=== PATIENT | female | born 1945 | race Caucasian/White ===

== ENCOUNTER 2020-10-29 05:51 | Observation (INO) | payer MEDICARE ==
[2020-10-29] MEDS ORDERED: Pepcid 20 MG VIAL IV ONE ×2 (06:19→06:45)
[2020-10-29] MEDS ORDERED: Sodium Chloride 0.9% 1000 ML 1,000 ML IV SCH (06:30)
[2020-10-29] MEDS ORDERED: Sodium Chloride 0.9% 1000 ML 1,000 ML ONE (06:45)
--- NOTE | 2020-10-29 07:10 | ERPHSYRPT ---
- History of Present Illness Source: patient Exam Limitations: no limitations Timing/Duration: today Severity: moderate Modifying Factors: Improves With: nothing Associated Symptoms: denies symptoms Hx Tetanus, Diphtheria Vaccination/Date Given: No Hx Influenza Vaccination/Date Given: Yes Hx Pneumococcal Vaccination/Date Given: No <YUSEF CERDA - Last Filed: 10/29/20 07:17> <KAREN PISANO - Last Filed: 10/29/20 09:58> - History of Present Illness Time Seen by Provider: 10/29/20 07:05 Physician History: pt took tussinex which had always been OK before and then broke out in a rash and with swollen tongue - airway is OK and swallowing OK; Has decreased since given and did take benedryl but is noted to have been allergic and so not given in ER furrther but began decadrom and H2 gavi; (YUSEF CERDA) Allergies/Adverse Reactions: acetaminophen [From Mucinex Sinus-Max Nite Congest] Allergy (Severe, Verified 10/29/20 06:20) Difficulty Swallowing diphenhydramine [From Mucinex Sinus-Max Nite Congest] Allergy (Severe, Verified 10/29/20 07:44) Difficulty Swallowing can take benadryl, but had allergic reaction to mucinex phenylephrine [From Mucinex Sinus-Max Nite Congest] Allergy (Severe, Verified 10/29/20 06:20) Difficulty Swallowing naproxen Allergy (Intermediate, Verified 10/29/20 06:20) Itching Home Medications: Propranolol HCl 10 mg [Inderal 10 MG] 10 mg PO DAILY 11/15/13 [History] lisinopriL [Zestril 40 mg] 40 mg PO DAILY 11/15/13 [History] Amlodipine Besylate 5 mg [Norvasc 5 mg] 5 mg PO DAILY 10/29/20 [History] - Review of Systems Constitutional: No Fever, No Chills Eyes: No Symptoms Ears, Nose, & Throat: Mouth Swelling (tongue) Respiratory: No Cough, No Dyspnea Cardiac: No Chest Pain, No Edema, No Syncope Abdominal/Gastrointestinal: No Abdominal Pain, No Nausea, No Vomiting, No Diarrhea Genitourinary Symptoms: No Dysuria Musculoskeletal: No Back Pain, No Neck Pain Skin: No Rash Neurological: No Dizziness, No Focal Weakness, No Sensory Changes Psychological: No Symptoms Endocrine: No Symptoms Hematologic/Lymphatic: No Symptoms Immunological/Allergic: No Symptoms All Other Systems: Reviewed and Negative <YUSEF CERDA - Last Filed: 10/29/20 07:17> - Past Medical History Pertinent Past Medical History: Yes Neurological History: No Pertinent History ENT History: No Pertinent History Cardiac History: Hypertension Respiratory History: No Pertinent History Endocrine Medical History: No Pertinent History Musculoskeletal History: No Pertinent History GI Medical History: No Pertinent History History: No Pertinent History Psycho-Social History: No Pertinent History Female Reproductive Disorders: No Pertinent History - Past Surgical History Past Surgical History: Yes Neuro Surgical History: No Pertinent History Cardiac: No Pertinent History Respiratory: No Pertinent History Gastrointestinal: No Pertinent History Genitourinary: No Pertinent History Musculoskeletal: No Pertinent History Female Surgical History: Hysterectomy Other Surgical History: FOOT- SURGERY - Social History Smoking Status: Never smoker Exposure to second hand smoke: No Drug Use: none Patient Lives Alone: Yes <YUSEF CERDA - Last Filed: 10/29/20 07:17> - Physical Exam General Appearance: no apparent distress, alert Eye Exam: PERRL/EOMI, eyes nml inspection Ears, Nose, Throat Exam: TMs normal, pharynx normal, moist mucous membranes, other (swollen tongue) Neck Exam: normal inspection, non-tender, supple, full range of motion Respiratory Exam: normal breath sounds, lungs clear, No respiratory distress Cardiovascular Exam: regular rate/rhythm, normal heart sounds, normal peripheral pulses Gastrointestinal/Abdomen Exam: soft, normal bowel sounds, No tenderness, No mass Pelvic Exam: deferred Rectal Exam: deferred Back Exam: normal inspection, normal range of motion, No CVA tenderness, No vertebral tenderness Extremity Exam: normal inspection, normal range of motion, pelvis stable Neurologic Exam: alert, oriented x 3, cooperative, normal mood/affect, nml cerebellar function, nml station & gait, sensation nml, No motor deficits Skin Exam: normal color, warm, dry, No rash Lymphatic Exam: No adenopathy SpO2 Interpretation: normal SpO2: 98 O2 Delivery: Room Air <YUSEF CERDA - Last Filed: 10/29/20 07:17> - Nursing Vital Signs Nursing Vital Signs: Initial Vital Signs Temperature 98.2 F 10/29/20 06:14 Pulse Rate 68 10/29/20 06:14 Respiratory Rate 18 10/29/20 06:14 Blood Pressure 196/126 10/29/20 06:14 O2 Sat by Pulse Oximetry 98 10/29/20 06:14 Pain Scale Pain Intensity 0 - Course Nursing assessment & vital signs reviewed: Yes <YUSEF CERDA - Last Filed: 10/29/20 07:17> Ordered Tests: Active Orders 24 hr Category Date Time Status IV Insertion STAT Care 10/29/20 06:19 Active Pulse Oximetry (ED) STAT Care 10/29/20 06:19 Active CBC W DIFF Stat Lab 10/29/20 08:25 Completed CMP Stat Lab 10/29/20 08:25 Completed UA W/RFX UR CULTURE Stat Lab 10/29/20 08:18 Ordered Medication Summary Generic Name Dose Route Start Last Admin Trade Name Freq PRN Reason Stop Dose Admin Sodium Chloride 1,000 mls @ 100 mls/hr 10/29/20 06:30 10/29/20 06:57 Sodium Chloride 0.9% 1000 Ml IV 11/28/20 06:29 100 mls/hr .Q10H TIMUR Administration Discontinued Medications Generic Name Dose Route Start Last Admin Trade Name Freq PRN Reason Stop Dose Admin Famotidine 20 mg 10/29/20 06:19 10/29/20 06:57 Pepcid 20 Mg Vial IV 10/29/20 06:20 20 mg STAT ONE Administration Famotidine Confirm 10/29/20 06:45 Pepcid 20 Mg Vial Administered 10/29/20 06:46 Dose 20 mg IV .STK-MED ONE Methylprednisolone Sodium Succinate 125 mg 10/29/20 07:43 10/29/20 07:50 Solu-Medrol 125 Mg IV 10/29/20 07:44 125 mg STAT ONE Administration Methylprednisolone Sodium Succinate Confirm 10/29/20 07:45 Solu-Medrol 125 Mg Administered 10/29/20 07:46 Dose 125 mg .ROUTE .STK-MED ONE Lab/Rad Data: Laboratory Result Diagrams 10/29/20 08:25 10/29/20 08:25 Laboratory Results 10/29/20 10/29/20 10/29/20 Range/Units 08:25 08:25 08:18 WBC 9.0 (4.0-10.5) K/mm3 RBC 4.35 (4.1-5.4) M/mm3 Hgb 13.2 (12.0-16.0) gm/dl Hct 41.2 (35-47) % MCV 94.7 (78-100) fl MCH 30.3 (26-32) pg MCHC 32.0 (32-36) g/dl RDW 14.3 H (11.5-14.0) % Plt Count 255 (150-450) K/mm3 MPV 9.4 (7.5-11.0) fl Gran % 70.1 H (36.0-66.0) % Eos # (Auto) 0.16 (0-0.5) Absolute Lymphs (auto) 1.77 (1.0-4.6) Absolute Monos (auto) 0.74 (0.0-1.3) Lymphocytes % 19.7 L (24.0-44.0) % Monocytes % 8.2 (0.0-12.0) % Eosinophils % 1.8 (0.00-5.0) % Basophils % 0.2 (0.0-0.4) % Absolute Granulocytes 6.31 (1.4-6.9) Basophils # 0.02 (0-0.4) Sodium 141 (137-145) mmol/L Potassium 3.7 (3.5-5.1) mmol/L Chloride 101 (98-107) mmol/L Carbon Dioxide 31 H (22-30) mmol/L Anion Gap 12.4 (5-15) MEQ/L BUN 19 H (7-17) mg/dL Creatinine 0.67 (0.52-1.04) mg/dL Estimated GFR > 60.0 ML/MIN Glucose 112 H (74-106) mg/dL Calcium 9.5 (8.4-10.2) mg/dL Total Bilirubin 0.60 (0.2-1.3) mg/dL AST 24 (14-36) U/L ALT 16 (0-35) U/L Alkaline Phosphatase 76 (38-126) U/L Serum Total Protein 7.8 (6.3-8.2) g/dL Albumin 4.2 (3.5-5.0) g/dL SARS-CoV-2 (PCR) POSITIVE A (NEGATIVE) - Progress Progress: improved, re-examined Counseled pt/family regarding: diagnosis, need for follow-up <YUSEF CERDA - Last Filed: 10/29/20 07:17> - Progress Discussed with Dr.: Sarahy Will see patient in: hospital (observation) <KAREN PISANO - Last Filed: 10/29/20 09:58> - Progress Progress Note: 10/29/20 07:[address] Pisano at change of shift for final dispo and obser/eval. She is now improving. (YUSEF CERDA) Patient endorsed to Dr. Pisano at approximately [address] Pisano was advised to reassess patient and determine whether or not patient is to be admitted for tongue swelling. We decided to admit patient. Case discussed with Dr. Morocho who accepted admission to observation. Patient then advised staff that she was exposed to Covid. Patient was tested for Covid and tested positive. Case discu ssed with Dr. Hobson. After discussion we observed the patient is on lisinopril. Patient believes that her allergic reaction was due to Mucinex. She has taken Mucinex several times in the past without any reaction. However there is a strong possibility that her tongue swelling may be due to her lisinopril. Patient will be admitted to the Covid unit for observation. Plan of care discussed with patient. She agrees to admission to [facility] for further evaluation and treatment. 10/29/20 09:54 Patient reassessed. Airway remains patent. Tongue is considerably enlarged. Patient's voice is muffled due to enlarged tongue. 10/29/20 09:56 (KAREN PISANO) <YUSEF CERDA - Last Filed: 10/29/20 07:17> - Departure Departure Disposition: Observation Critical Care Time: No <KAREN PISANO - Last Filed: 10/29/20 09:58> - Departure Clinical Impression: Adverse effect of lisinopril, Tongue swelling, COVID-19 Condition: Stable Referrals: LAURA MOONEY, MACHINE TRY OUT SETTER [Primary Care Provider] -
[2020-10-29] MEDS ORDERED: solu-MEDROL 125 MG IV ONE (07:43)
[2020-10-29] MEDS ORDERED: solu-MEDROL 125 MG ONE (07:45)
[2020-10-29 08:29] LABS: Absolute Neutrophil Ct (ANC) 6.31 (1.4-6.9); BASOPHIL % 0.2 % (0.0-0.4); Basophil (Absolute #) 0.02 (0-0.4); Eosinophil % 1.8 % (0.00-5.0); Eosinophil (Absolute #) 0.16 (0-0.5); Hematocrit 41.2 % (35-47); Hemoglobin 13.2 gm/dl (12.0-16.0); Lymphocyte (Absolute #) 1.77 (1.0-4.6); Lymphocytes % 19.7 % (24.0-44.0); Mean Cell Volume 94.7 fl (78-100); Mean Corpuscular Hemoglobin 30.3 pg (26-32); Mean Platelet Volume 9.4 fl (7.5-11.0); Monocyte (Absolute #) 0.74 (0.0-1.3); Monocytes % 8.2 % (0.0-12.0); Neutrophil % 70.1 % (36.0-66.0); Platelet Count 255 K/mm3 (150-450); Red Blood Count 4.35 M/mm3 (4.1-5.4); Red Cell Distribution Width 14.3 % (11.5-14.0)
[2020-10-29 08:56] LABS: ALBUMIN 4.2 g/dL (3.5-5.0); ALKALINE PHOSPHATASE 76 U/L (38-126); BLOOD UREA NITROGEN 19 mg/dL (7-17); CHLORIDE 101 mmol/L (98-107); Calcium 9.5 mg/dL (8.4-10.2); Carbon Dioxide 31 mmol/L (22-30); Creatinine 1 0.67 mg/dL (0.52-1.04); EST GLOMERULAR FILTRATION RATE > 60.0 ML/MIN; Glucose 112 mg/dL (74-106); SGOT/AST 24 U/L (14-36); SGPT/ALT 16 U/L (0-35); SODIUM 141 mmol/L (137-145); Total Protein 7.8 g/dL (6.3-8.2)
[2020-10-29 09:12] LABS: ANION GAP 12.4 MEQ/L (5-15); Potassium 3.7 mmol/L (3.5-5.1)
[2020-10-29] MEDS ORDERED: Lopressor 25MG Tab PO SCH (13:00)
[2020-10-29] MEDS ORDERED: NORVASC 5 MG PO SCH (13:00)
[2020-10-29 16:16] VITALS: BP 187/86; O2SAT 96
[2020-10-29 16:19] VITALS: PULSE 74
[2020-10-29 17:14] LABS: Appearance SLIGHTLY CLOUDY (CLEAR); Bacteria FEW /HPF (NEGATIVE); Bilirubin NEGATIVE (NEGATIVE); Blood SMALL Ery/ul (0-5); Glucose NEGATIVE (NEGATIVE); Ketones NEGATIVE (NEGATIVE); Leukocyte Esterase TRACE (NEGATIVE); Mucus SLIGHT /HPF (NEGATIVE); Nitrite NEGATIVE (NEGATIVE); Protein,Urine Dip 100 (Negative); Specific Gravity 1.018 (1.005-1.025); Urobilinogen NEGATIVE mg/dL (0-1); WBC 26-50 /HPF (0-5)
[2020-10-29] MEDS ORDERED: ECOTRIN 81 MG PO SCH (22:00)
[2020-10-29] MEDS ORDERED: METOPROLOL TARTRATE 75 MG PO SCH (22:00)
[2020-10-29] MEDS ORDERED: hydroDIURIL 25 MG PO SCH (22:00)
--- NOTE | 2020-10-30 08:53 | HP ---
CHIEF COMPLAINT: Tongue swollen, shortness of breath. HISTORY OF PRESENT ILLNESS: The patient is a 75 year old white female who tested positive for COVID approximately a week ago. She is pretty well asymptomatic. 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 However, she has been asymptomatic. Last night however she had problems with her tongue swelling up, feeling like she could not swallow secretions or breathe well and her hands started swelling up. She talked one of her nurse friends and she took four Benadryl with fluid and that seemed to help. However, this morning the symptoms came back. She also had a red rash. She said she has always been able to breathe but just does not feel right and her tongue swollen. MEDICATIONS: Propranolol 10 mg q.d., Lisinopril 40 q.d., Norvasc 5 q.d. ALLERGIES: TYLENOL, PHEYLEPHRINE FROM MUCINEX SINUS-MAX NITE (DIFFICULTY SWALLOWING). NAPROXEN (ITCHING). LISINOPRIL (ANGIOEDEMA). 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 Hypertension for many years. PAST SURGICAL HISTORY: Hysterectomy. Foot surgery. REVIEW OF SYSTEMS: HEENT: The patient has no problems hearing or seeing. She can swallow with some difficulty which is much better since treating with steroids and some more Benadryl down in the emergency room. NECK: No neck pain. ABDOMEN: No nausea or vomiting. EXTREMITIES: No back pain. PSYCHOLOGIC: The patient is very alert, orientated. No history of psychiatric problems. I have worked with the [employer] for years off and on and she is a very stable, hard working person even at 75. SOCIAL HISTORY: She lives with her son. 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 PHYSICAL EXAMINATION: The patient is alert, orientated, pleasant, intelligent woman. HEENT: Pupils equal and reactive to light. NECK: Supple without adenopathy. CHEST: Clear. CVS: No murmurs or gallops. There might be a small systolic murmur left sternal border. ABDOMEN: Soft. No tenderness or organomegaly. EXTREMITIES: At this time no edema. Joints are normal IMPRESSION: Lab work was normal except she is COVID positive. The patient will be observed. Anaphylactic reaction seems to be resolved. She understands not to take lisinopril or any other LARISA inhibitor or ARB and gave her a note to give to her rotary helper, Dr. Martinez although I am pretty sure she could relay the information. PROGNOSIS: Good. She will be released in several hours if she continues to improve.
== END 2020-10-29 17:38 | disposition home or self-care (01) ==
LOC: ED 05:51 → MED SURG 10:18
PROVIDERS: ADMIT Family Medicine; ATTEND Family Medicine
DX: T88.6XXA Anaphylactic reaction due to adverse effect of correct drug or medicament properly administered, initial encounter (principal); R06.02 Shortness of breath; L27.0 Generalized skin eruption due to drugs and medicaments taken internally; T46.4X5A Adverse effect of angiotensin-converting-enzyme inhibitors, initial encounter; U07.1 COVID-19; M79.89 Other specified soft tissue disorders; Z79.899 Other long term (current) drug therapy; I10 Essential (primary) hypertension
CPT/HCPCS: 36000; 36415; 80053; 81001; 85025; 87077; 87086; 87186; 93268; 94760; 96374; 96375; 99285; G0378; U0003; J2930; A9270-GY

== ENCOUNTER 2022-04-01 05:48 | Day surgery (SDC) | payer MEDICARE ==
[2022-04-01] MEDS ORDERED: Lactated Ringers 1,000 ML IV SCH (06:30)
[2022-04-01] MEDS ORDERED: Xylocaine-Mpf 2% 5 Ml Vial ONE (07:56)
[2022-04-01] MEDS ORDERED: DIPRIVAN 200 MG/20 ML IV ONE ×3 (07:56→08:19)
[2022-04-01 09:01] VITALS: O2SAT 96
[2022-04-01 09:13] VITALS: PULSE 58
[2022-04-01 09:16] VITALS: BP 144/80
--- NOTE | 2022-04-01 17:16 | OP ---
SURGERY DATE: 04/01/2022 SURGERY TIME: 755 PREOPERATIVE DIAGNOSIS: 1. ABDOMEN PAIN, PARTICULARLY SUPRAPUBIC INTO THE BACK. POSTOPERATIVE DIAGNOSIS: 1. NORMAL UPPER ENDOSCOPY. 2. SEVERE SIGMOID DIVERTICULOSIS. PROCEDURE: 1. Esophagogastroduodenoscopy. 2. Colonoscopy. SURGEON: Dr. Soares. ANESTHESIA: MAC, given by the Anesthesia Department. BRIEF HISTORY: The patient is a 76 y/o WF who presents now for endoscopic evaluation. The patient reports she has never had an examination performed previously. She reports severe pain in her lower abdomen suprapubic and into the rectum area which she was unable to get relief from, although it is better now. The patient was felt to need to have endoscopic evaluation. She was appraised of the risks of the procedures including the risk of perforation, phlebitis, untoward reaction to medication, bleeding, and missed lesions. The patient verbalized her understanding and desired to have the procedure performed. DESCRIPTION OF PROCEDURE: The patient was given the medications by the Anesthesia Department. She had continuous pulse oximetry, ECG monitoring, and intermittent BP monitoring during the examination. She was placed in the left lateral decubitus position. A bite block was placed and the flexible Olympus gastroscope was used to intubate the oropharynx. A view of the larynx was obtained and was normal. The scope was easily introduced in the esophagus which appeared to be normal throughout its length. The stomach was entered where normal gastric rugal folds were seen and these distended nicely with the insufflation of air. The scope was passed along the greater curvature of the stomach to the antrum. The pylorus was encountered and intubated. The duodenum was inspected and found to be normal. The scope was withdrawn towards the stomach. Again, a retroflex view was obtained of the lesser curvature, fundus, and cardia regions of the stomach and these appeared to be normal as well. The scope was then removed from the patient. Next, a digital rectal examination was performed and revealed normal anal sphincter tone and no masses. The flexible Olympus pediatric colonoscope was used to intubate the rectum. A view of the colon was developed sequentially to the cecum. On retroflex view in the rectum was noted moderate to severe sigmoid diverticulosis, but no other mucosal lesions. The scope was removed from the patient who tolerated the procedure well and was sent back to OP recovery in good condition. The prep was noted to be fair to good.
== END 2022-04-01 09:17 | disposition home or self-care (01) ==
LOC: SDC 05:48 → EDSTATUS 08:17 → SDC 09:17
PROVIDERS: ATTEND Family Medicine
DX: K57.30 Diverticulosis of large intestine without perforation or abscess without bleeding (principal); R10.84 Generalized abdominal pain; R10.30 Lower abdominal pain, unspecified; K62.89 Other specified diseases of anus and rectum
CPT/HCPCS: 99100; J2704

== ENCOUNTER 2024-03-11 08:08 | Emergency (ER) | payer MEDICARE ==
--- NOTE | 2024-03-11 08:14 | ERPHSYRPT ---
- History of Present Illness Time Seen by Provider: 03/11/24 08:13 Historian: patient, family Exam Limitations: no limitations Physician History: This is a 78-year-old white female patient of nurse practitioner Jovany who presents to the emergency room with bloody bowel movements that occurred this morning. Patient has never had this type of thing before. She has no bleeding disorders. She has no clotting disorders. She has no liver disease. She is only on an aspirin a day. She is not on any other anticoagulation therapy. Patient had a upper endoscopy and a colonoscopy performed approximately 6 to 8 months ago and was told she has colonic diverticular disease. She denies chest pain. She denies shortness of breath. She has no pain at this time. However, when she was passing the bloody bowel movement, she had lower abdominal cramping pain. Patient has a history of hypertension, gastroesophageal reflux disease and hyperlipidemia. She has not been vomiting blood. States there is a family history of ulcer disease. She states there is been no changes in her diet or medications. I did review old labs from 03/03/2022. Her hematocrit and hemoglob in levels were 13 and 40 respectively that date. Timing/Duration: today Quality: cramping (None now but cramping when she was passing bloody stools this morning) Abdominal Pain Onset Location: RLQ, LLQ, other Pain Radiation: no radiation Severity of Pain-Max: moderate Severity of Pain-Current: none Modifying Factors: Improves With: nothing Associated Symptoms: denies symptoms Previous symptoms: no prior history, no recent treatment Allergies/Adverse Reactions: lisinopril Allergy (Severe, Verified 03/11/24 08:15) angioedema naproxen Allergy (Intermediate, Verified 03/11/24 08:15) Itching Home Medications: Hydrochlorothiazide 25 mg [hydroDIURIL 25 MG] 25 mg PO DAILY 10/29/20 [History] Metoprolol Tartrate 75 mg PO BID 10/29/20 [History] Amlodipine Besylate 5 mg [Norvasc 5 mg] 5 mg PO QAM 03/31/22 [History] Calcium Carb/Vit D3/Minerals [Calcium 600+D Plus Minerals Tb] 1 each PO DAILY 03/31/22 [History] Cholecalciferol (Vitamin D3) [Vitamin D3] 1,000 iu PO DAILY 03/31/22 [History] Cranberry 500 mg PO DAILY 03/31/22 [History] Losartan Potassium 50 mg [Cozaar 50 MG] 50 mg PO DAILY 03/31/22 [History] Magnesium Oxide 400 mg [Mag-Ox 400] 400 mg PO DAILY 03/31/22 [History] Omeprazole 20 mg PO DAILY 03/31/22 [History] Potassium Citrate [Potassium] 99 mg PO DAILY 03/31/22 [History] Pravastatin Sodium 20 mg PO DAILY 03/31/22 [History] Hx Tetanus, Diphtheria Vaccination/Date Given: No Hx Influenza Vaccination/Date Given: Yes Hx Pneumococcal Vaccination/Date Given: Yes Travel Risk - International Travel Have you traveled outside of the country in past 3 weeks: No - Emerging Infectious Disease Are you exhibiting symptoms associated with any current EIDs: No - Review of Systems Constitutional: No Symptoms Eyes: No Symptoms Ears, Nose, & Throat: No Symptoms Respiratory: No Symptoms Cardiac: No Symptoms Abdominal/Gastrointestinal: Abdominal Pain (Bilateral lower quadrant cramping pain during the passage of bloody stool), Hematochezia, Melena Genitourinary Symptoms: No Symptoms Musculoskeletal: No Symptoms Skin: No Symptoms Neurological: No Symptoms Psychological: No Symptoms Endocrine: No Symptoms Hematologic/Lymphatic: No Symptoms Immunological/Allergic: No Symptoms All Other Systems: Reviewed and Negative - Past Medical History Pertinent Past Medical History: Yes Neurological History: No Pertinent History ENT History: No Pertinent History Cardiac History: Congenital Heart Disease, Hypertension Respiratory History: No Pertinent History Endocrine Medical History: No Pertinent History Musculoskeletal History: Arthritis, Fractures GI Medical History: No Pertinent History History: No Pertinent History Psycho-Social History: No Pertinent History Female Reproductive Disorders: Other Other Medical History: fx r ankel with plate/zay and screws. 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 also has screw in l foot. hx blood clot after hysterectomy - Past Surgical History Past Surgical History: Yes Neuro Surgical History: No Pertinent History Cardiac: Cardiac Catheterization Respiratory: No Pertinent History Gastrointestinal: No Pertinent History Genitourinary: No Pertinent History Musculoskeletal: No Pertinent History Female Surgical History: Hysterectomy Other Surgical History: FOOT- SURGERY - Social History Smoking Status: Former smoker Exposure to second hand smoke: No Drug Use: none Patient Lives Alone: Yes - Nursing Vital Signs Nursing Vital Signs: Initial Vital Signs Temperature 97.7 F 03/11/24 08:18 Pulse Rate 70 03/11/24 08:18 Respiratory Rate 20 03/11/24 08:18 Blood Pressure 194/89 03/11/24 08:18 O2 Sat by Pulse Oximetry 96 03/11/24 08:18 Pain Scale Pain Intensity 0 - Physical Exam General Appearance: no apparent distress, alert, anxiety Eye Exam: PERRL/EOMI, eyes nml inspection Ears, Nose, Throat Exam: normal ENT inspection, moist mucous membranes Neck Exam: normal inspection, non-tender, supple, full range of motion Respiratory Exam: normal breath sounds, lungs clear, No chest tenderness, No respiratory distress Cardiovascular Exam: regular rate/rhythm, normal heart sounds, normal peripheral pulses Gastrointestinal/Abdomen Exam: soft, normal bowel sounds, No tenderness Pelvic Exam: not done Rectal Exam: not done Back Exam: normal inspection, normal range of motion, No CVA tenderness, No vertebral tenderness Extremity Exam: normal inspection, normal range of motion, pelvis stable Neurologic Exam: alert, oriented x 3, cooperative, despatching and receiving clerk II-XII nml as tested, normal mood/affect, nml cerebellar function, nml station & gait, sensation nml Skin Exam: normal color, warm, dry Lymphatic Exam: No adenopathy SpO2 Interpretation: normal O2 Delivery: Room Air - Course Nursing assessment & vital signs reviewed: Yes Ordered Tests: Active Orders 24 hr Category Date Time Status IV Insertion STAT Care 03/11/24 08:28 Active ABDOMEN AND PELVIS W/0 CONTRAS [CT] Stat Exams 03/11/24 08:28 Completed AMYLASE Stat Lab 03/11/24 08:31 Completed CBC W DIFF Stat Lab 03/11/24 08:31 Completed CMP Stat Lab 03/11/24 08:31 Completed CULTURE,URINE Stat Lab 03/11/24 08:31 Received LIPASE Stat Lab 03/11/24 08:31 Completed Occult Blood-Fecal Screen (Diagnostic) [OB-FECAL SCREEN Lab 03/11/24 Completed ] Stat PROTIME WITH INR Stat Lab 03/11/24 08:31 Completed UA W/RFX UR CULTURE Stat Lab 03/11/24 08:31 Completed Medication Summary Discontinued Medications Generic Name Dose Route Start Last Admin Trade Name Freq PRN Reason Stop Dose Admin Ceftriaxone Sodium 1 gm in 100 mls @ 200 mls/hr 03/11/24 09:00 03/11/24 09:45 Rocephin 1 Gm / 100 Ml Nacl IV 03/11/24 09:29 200 ml/hr STAT ONE 200 mls/hr Administration Ceftriaxone Sodium Confirm 03/11/24 09:24 Rocephin 1 Gm / 100 Ml Nacl Administered 03/11/24 09:25 Dose 1 gm in 100 mls @ ud IV .STK-MED ONE Lab/Rad Data: Laboratory Result Diagrams 03/11/24 08:31 03/11/24 08:31 Laboratory Results 03/11/24 03/11/24 03/11/24 Range/Units Unknown 08: 08:31 WBC (4.0-10.5) x10^3/uL RBC (4.1-5.4) x10^6/uL Hgb (12.0-16.0) g/dL Hct (35-47) % MCV (78-100) fL MCH (26-32) pg MCHC (32-36) g/dL RDW (11.5-14.0) % Plt Count (150-450) x10^3/uL MPV (7.5-11.0) fL Gran % (36.0-66.0) % Immature Gran % (Auto) (0.00-0.4) % Nucleat RBC Rel Count (0.00-0.1) % Eos # (Auto) (0-0.5) x10^3/uL Immature Gran # (Auto) (0.00-0.03) x10^3u/L Absolute Lymphs (auto) (1.0-4.6) x10^3/uL Absolute Monos (auto) (0.0-1.3) x10^3/uL Absolute Nucleated RBC (0.00-0.01) x10^3u/L Lymphocytes % (24.0-44.0) % Monocytes % (0.0-12.0) % Eosinophils % (0.00-5.0) % Basophils % (0.0-0.4) % Absolute Granulocytes (1.4-6.9) x10^3/uL Basophils # (0-0.4) x10^3/uL PT 9.9 (9.4-12.5) SECONDS INR 0.90 (0.8-3.0) Sodium 137 (135-145) mmol/L Potassium 3.7 (3.5-5.1) mmol/L Chloride 99 (98-107) mmol/L Carbon Dioxide 31 H (22-30) mmol/L Anion Gap 11.2 (5-15) MEQ/L BUN 20 H (7-17) mg/dL Creatinine 0.62 (0.52-1.04) mg/dL Estimated GFR 90.5 ML/MIN Glucose 114 H (74-106) mg/dL Calcium 9.5 (8.4-10.2) mg/dL Total Bilirubin 0.70 (0.2-1.3) mg/dL AST 27 (14-36) U/L ALT 17 (0-35) U/L Alkaline Phosphatase 86 (38-126) U/L Serum Total Protein 8.2 (6.3-8.2) g/dL Albumin 4.5 (3.5-5.0) g/dL Amylase 79 (30-110) U/L Lipase 103 (23-300) U/L Urine Color (Yellow) Urine Appearance (Clear) Urine pH (4.6-8.0) Ur Specific [place] (1.005-1.030) Urine Protein (Negative) Urine Glucose (UA) (Negative) mg/dL Urine Ketones (Negative) Urine Blood (Negative) Urine Nitrite (Negative) Urine Bilirubin (Negative) Urine Urobilinogen (0.2) mg/dL Ur Leukocyte Esterase (Negative) U Hyaline Cast (Auto) (0-2) /LPF Urine Microscopic RBC (0-5) /HPF Urine Microscopic WBC (0-5) /HPF Ur Epithelial Cells (None Seen) /HPF Urine Bacteria (None Seen) /HPF Urine Culture Reflexed (NO) Stl Occult Blood (IFOB) POSITIVE A (NEGATIVE) 03/11/24 03/11/24 Range/Units 08:31 08:31 WBC 7.8 (4.0-10.5) x10^3/uL RBC 4.27 (4.1-5.4) x10^6/uL Hgb 12.7 (12.0-16.0) g/dL Hct 38.5 (35-47) % MCV 90.2 (78-100) fL MCH 29.7 (26-32) pg MCHC 33.0 (32-36) g/dL RDW 14.5 H (11.5-14.0) % Plt Count 214 (150-450) x10^3/uL MPV 9.0 (7.5-11.0) fL Gran % 66.6 H (36.0-66.0) % Immature Gran % (Auto) 0.5 H (0.00-0.4) % Nucleat RBC Rel Count 0.0 (0.00-0.1) % Eos # (Auto) 0.14 (0-0.5) x10^3/uL Immature Gran # (Auto) 0.04 H (0.00-0.03) x10^3u/L Absolute Lymphs (auto) 1.72 (1.0-4.6) x10^3/uL Absolute Monos (auto) 0.67 (0.0-1.3) x10^3/uL Absolute Nucleated RBC 0.00 (0.00-0.01) x10^3u/L Lymphocytes % 22.1 L (24.0-44.0) % Monocytes % 8.6 (0.0-12.0) % Eosinophils % 1.8 (0.00-5.0) % Basophils % 0.4 (0.0-0.4) % Absolute Granulocytes 5.18 (1.4-6.9) x10^3/uL Basophils # 0.03 (0-0.4) x10^3/uL PT (9.4-12.5) SECONDS INR (0.8-3.0) Sodium (135-145) mmol/L Potassium (3.5-5.1) mmol/L Chloride (98-107) mmol/L Carbon Dioxide (22-30) mmol/L Anion Gap (5-15) MEQ/L BUN (7-17) mg/dL Creatinine (0.52-1.04) mg/dL Estimated GFR ML/MIN Glucose (74-106) mg/dL Calcium (8.4-10.2) mg/dL Total Bilirubin (0.2-1.3) mg/dL AST (14-36) U/L ALT (0-35) U/L Alkaline Phosphatase (38-126) U/L Serum Total Protein (6.3-8.2) g/dL Albumin (3.5-5.0) g/dL Amylase (30-110) U/L Lipase (23-300) U/L Urine Color Yellow (Yellow) Urine Appearance Clear (Clear) Urine pH 7.5 (4.6-8.0) Ur Specific [place] 1.015 (1.005-1.030) Urine Protein 100 A (Negative) Urine Glucose (UA) Negative (Negative) mg/dL Urine Ketones Negative (Negative) Urine Blood Large A (Negative) Urine Nitrite Negative (Negative) Urine Bilirubin Negative (Negative) Urine Urobilinogen 0.2 (0.2) mg/dL Ur Leukocyte Esterase Small A (Negative) U Hyaline Cast (Auto) NONE SEEN (0-2) /LPF Urine Microscopic RBC 11-20 A (0-5) /HPF Urine Microscopic WBC 21-50 A (0-5) /HPF Ur Epithelial Cells None Seen (None Seen) /HPF Urine Bacteria None Seen (None Seen) /HPF Urine Culture Reflexed YES (NO) Stl Occult Blood (IFOB) (NEGATIVE) - Progress Progress: improved, re-examined Progress Note: 03/11/24 08:38 My medical decision making and the assignment of moderate complexity to this patient's medical issue today is based on review of the patient's past medical history, review of the patient's medication list, review of patient drug allergy list, history present illness and physical findings on examination. The workup in this patient includes placement of intravenous line, CBC, CMP, amylase, lipase, urinalysis, PT/INR, CT scan of the abdomen and pelvis without contrast. Differential diagnosis includes diverticulosis, diverticulitis, bleeding disorder, gastritis, peptic ulcer disease. 03/11/24 10:02 I interpreted the patient's laboratory data results. The patient has a urinary tract infection. The remainder of the patient's laboratory data results did not show an additional acute or emergent medical issue. The CT scan of the abdomen pelvis without contrast was interpreted by the radiologist and I reviewed the impression. The impression states diffuse colonic diverticulosis. New sigmoid bowel wall thickening without stranding probably secondary to chronic diverticulitis. Mild, early acute diverticulitis not completely excluded. Counseled pt/family regarding: lab results, diagnosis, need for follow-up, rad results Medical Desision Making - Independent Historian Additional History obtained from: Family - Diagnostic Testing Diagnostic test were ordered, analyzed, and reviewed by me: Yes Radiological Interpretation: Reviewed by me, Teleradiologist Report - Risk of complications The pt has a mod risk of morbidity or mortality based on: Need for prescription drug management - Departure Departure Disposition: Home Clinical Impression: Passage of bloody stools, Diverticulitis, UTI (urinary tract infection) Condition: Stable Critical Care Time: No Referrals: LAURA MOONEY, RADAR SYSTEMS ENGINEER [Primary Care Provider] - Follow up/PCP as directed Additional Instructions: Drink plenty of fluids. Avoid fatty greasy spicy foods. Avoid popcorn nuts and fruits with seeds in them. Take your antibiotics and other medication as prescribed. Call your primary care provider today, 03/11/2024, to make arranges for follow-up appointment for further evaluation management and to be seen in the next 3 to 5 days. Return to the emergency department if continued, significant rectal bleeding that is associated with dizziness, weakness. Prescriptions: Ciprofloxacin [Cipro 500 MG] 500 mg PO BID #14 tablet Metronidazole 500 mg [Flagyl 500 MG] 500 mg PO TID #21 tablet
[2024-03-11 08:31] VITALS: TEMP 97.7
[2024-03-11 08:41] LABS: Absolute Neutrophil Ct (ANC) 5.18 x10^3/uL (1.4-6.9); BASOPHIL % 0.4 % (0.0-0.4); Basophil (Absolute #) 0.03 x10^3/uL (0-0.4); Eosinophil % 1.8 % (0.00-5.0); Eosinophil (Absolute #) 0.14 x10^3/uL (0-0.5); Hematocrit 38.5 % (35-47); Hemoglobin 12.7 g/dL (12.0-16.0); IMMATURE GRAN # 0.04 x10^3u/L (0.00-0.03); IMMATURE GRAN % 0.5 % (0.00-0.4); Lymphocyte (Absolute #) 1.72 x10^3/uL (1.0-4.6); Lymphocytes % 22.1 % (24.0-44.0); Mean Cell Volume 90.2 fL (78-100); Mean Corpuscular Hemoglobin 29.7 pg (26-32); Monocyte (Absolute #) 0.67 x10^3/uL (0.0-1.3); Monocytes % 8.6 % (0.0-12.0); Neutrophil % 66.6 % (36.0-66.0); Platelet Count 214 x10^3/uL (150-450); Red Blood Count 4.27 x10^6/uL (4.1-5.4); Red Cell Distribution Width 14.5 % (11.5-14.0); White Blood Count 7.8 x10^3/uL (4.0-10.5)
[2024-03-11 08:47] LABS: Appearance Clear (Clear); Bacteria None Seen /HPF (None Seen); Bilirubin Negative (Negative); Blood Large (Negative); Epithelial Cells None Seen /HPF (None Seen); Glucose, Urine Negative (Negative); Hyaline Casts NONE SEEN /LPF (0-2); Ketones Negative (Negative); Leukocyte Esterase Small (Negative); Nitrite Negative (Negative); Ph 7.5 (4.6-8.0); Protein,Urine Dip 100 (Negative); Specific Gravity 1.015 (1.005-1.030); Urobilinogen 0.2 mg/dL (0.2); WBC 21-50 /HPF (0-5)
[2024-03-11 08:49] LABS: ADD URINE CULTURE? YES (NO)
[2024-03-11 08:53] LABS: ALBUMIN 4.5 g/dL (3.5-5.0); ANION GAP 11.2 MEQ/L (5-15); BILIRUBIN,TOTAL 0.7 mg/dL (0.2-1.3); Calcium 9.5 mg/dL (8.4-10.2); Creatinine 1 0.62 mg/dL (0.52-1.04); EST GLOMERULAR FILTRATION RATE 90.5 ML/MIN; INR 0.9 (0.8-3.0); PROTIME 9.9 SECONDS (9.4-12.5); Potassium 3.7 mmol/L (3.5-5.1); Total Protein 8.2 g/dL (6.3-8.2)
[2024-03-11 09:22] LABS: IFOB TEST RESULTS POSITIVE (NEGATIVE)
[2024-03-11] MEDS ORDERED: ROCEPHIN 1 GM / 100 ML NaCl 1 GM/100 ML IVPB IV ONE (09:24)
[2024-03-11] MEDS: ROCEPHIN 1 GM / 100 ML NaCl 1 GM/100 ML IVPB IV ONE (09:45)
--- NOTE | 2024-03-11 09:46 | XRAY ---
Indication: Bloody stools. History diverticulosis. Multiple contiguous axial images obtained through the abdomen and pelvis without contrast. Comparison: March 26, 2022 Lung bases again demonstrate minimal scattered fibrosis/scarring and tiny right middle lobe calcified granulomas. No infiltrate or effusion. Heart not enlarged. Noncontrasted stomach and bowel loops appear nonobstructed. Again appendix not visualized. There remains diffuse scattered colonic diverticulosis. Sigmoid colon demonstrates new mild wall thickening without pericolonic stranding possibly scarring from chronic diverticulitis. Again hysterectomy. No free fluid/air. Remaining liver, gallbladder, pancreas, spleen, adrenal glands, kidneys, ureters, and bladder are unremarkable for noncontrast exam. Again moderate scattered aortoiliac calcifications without AAA. Osseous structures intact again with osteopenia, mild/moderate degenerative changes throughout spine, and mild degenerative changes both hips. Impression: 1. Again diffuse colonic diverticulosis. New sigmoid bowel wall thickening without stranding, probably scarring from chronic diverticulitis. Mild/early diverticulitis not completely excluded in right clinical setting. 2. Again chronic findings including pulmonary fibrosis/scarring, arteriosclerotic disease, chronic bony findings, and old granulomatous disease.
[2024-03-11 10:03] LABS: 027 TOX PROD PRESUMPTIVE NEGATIVE (NEGATIVE); TOXIGENIC C. DIFF ORG NEGATIVE (NEGATIVE)
[2024-03-11] MEDS ORDERED: Flagyl 500 MG ONE (10:14)
[2024-03-11] MEDS: Flagyl 500 MG PO ONE (10:14)
[2024-03-11 10:25] VITALS: BP 167/82; PULSE 70; RESP 18; O2SAT 98
== END 2024-03-11 10:25 | disposition home or self-care (01) ==
LOC: ED 08:08
DX: K57.32 Diverticulitis of large intestine without perforation or abscess without bleeding (principal); N39.0 Urinary tract infection, site not specified; K92.1 Melena; I10 Essential (primary) hypertension; Z79.899 Other long term (current) drug therapy
CPT/HCPCS: 36000; 36415; 74176; 80053; 81001; 82150; 83690; 85025; 85610; 87077; 87086; 87186; 87493; 96365; 99284; G0328; 82274; J0696; A9270-GY

== ENCOUNTER 2024-12-25 10:06 | Emergency (ER) | payer MEDICARE ==
[2024-12-25 10:22] VITALS: PULSE 80; RESP 18; TEMP 97.2
[2024-12-25 10:38] VITALS: BP 140/87; O2SAT 96
--- NOTE | 2024-12-25 10:42 | ERPHSYRPT ---
- History of Present Illness Time Seen by Provider: 12/25/24 10:38 Source: patient Exam Limitations: no limitations Patient Subjective Stated Complaint: pt here for pain to left ankle for 2 weeks now, no injury, pain with bearing wt, Triage Nursing Assessment: pt walked in, resp easy, skin w.d.p. has redness to inner aspect of left ankle, with slight swelling, strong radial pulse . Physician History: pt here for pain to left ankle for 2 weeks now, no injury, pain with bearing weight. Hx of stress fracture in left foot 20 years ago. Method of Injury: unknown Occurred: last week (for 2 weeks) Quality: constant Severity of Pain-Max: moderate Severity of Pain-Current: moderate Lower Extremities Pain: foot: left, ankle: left Modifying Factors: Improves With: nothing Associated Symptoms: unable to bear weight Allergies/Adverse Reactions: lisinopril Allergy (Severe, Verified 12/25/24 10:19) angioedema naproxen Allergy (Intermediate, Verified 12/25/24 10:19) Itching Home Medications: Hydrochlorothiazide 25 mg [hydroDIURIL 25 MG] 25 mg PO DAILY 10/29/20 [History] Metoprolol Tartrate 75 mg PO BID 10/29/20 [History] Amlodipine Besylate 5 mg [Norvasc 5 mg] 5 mg PO QAM 03/31/22 [History] Calcium Carb/Vit D3/Minerals [Calcium 600+D Plus Minerals Tb] 1 each PO DAILY 03/31/22 [History] Cholecalciferol (Vitamin D3) [Vitamin D3] 1,000 iu PO DAILY 03/31/22 [History] Cranberry 500 mg PO DAILY 03/31/22 [History] Losartan Potassium 50 mg [Cozaar 50 MG] 50 mg PO DAILY 03/31/22 [History] Magnesium Oxide 400 mg [Mag-Ox 400] 400 mg PO DAILY 03/31/22 [History] Omeprazole 20 mg PO DAILY 03/31/22 [History] Potassium Citrate [Potassium] 99 mg PO DAILY 03/31/22 [History] Pravastatin Sodium 20 mg PO DAILY 03/31/22 [History] Hx Tetanus, Diphtheria Vaccination/Date Given: No Hx Influenza Vaccination/Date Given: Yes Hx Pneumococcal Vaccination/Date Given: Yes Immunizations Up to Date: Yes Travel Risk - International Travel Have you traveled outside of the country in past 3 weeks: No - Emerging Infectious Disease Are you exhibiting symptoms associated with any current EIDs: No - Review of Systems Constitutional: No Fever, No Chills Eyes: No Symptoms Ears, Nose, & Throat: No Symptoms Respiratory: No Symptoms, No Cough, No Dyspnea Cardiac: No Symptoms, No Chest Pain, No Edema, No Syncope Abdominal/Gastrointestinal: No Symptoms, No Abdominal Pain, No Nausea, No Vom iting, No Diarrhea Genitourinary Symptoms: No Symptoms, No Dysuria Musculoskeletal: Joint Pain, No Back Pain, No Neck Pain, No Fall, No Injury Skin: No Symptoms, No Rash Neurological: No Symptoms, No Dizziness, No Focal Weakness, No Sensory Changes Psychological: No Symptoms Endocrine: No Symptoms All Other Systems: Reviewed and Negative - Past Medical History Pertinent Past Medical History: Yes Neurological History: No Pertinent History ENT History: No Pertinent History Cardiac History: Congenital Heart Disease, Hypertension Respiratory History: No Pertinent History Endocrine Medical History: No Pertinent History Musculoskeletal History: Arthritis, Fractures GI Medical History: Diverticulitis History: No Pertinent History Psycho-Social History: No Pertinent History Female Reproductive Disorders: Other Other Medical History: fx r ankel with plate/zay and screws. 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 also has screw in l foot. hx blood clot after hysterectomy - Past Surgical History Past Surgical History: Yes Neuro Surgical History: No Pertinent History Cardiac: Cardiac Catheterization Respiratory: No Pertinent History Gastrointestinal: No Pertinent History Genitourinary: No Pertinent History Musculoskeletal: No Pertinent History Female Surgical History: Hysterectomy Other Surgical History: FOOT- SURGERY - Social History Smoking Status: Former smoker Exposure to second hand smoke: No Drug Use: none - Social Determinants of Health Will the patient participate in the screening: Yes Do you worry about a steady place to live?: No Do you have any problems with any of the following?: No known problems In the past 12 months,have you had to go without utilities?: No Transportation Issues: No Has anyone in your support network made you feel unsafe?: No Have you or anyone in your house had to go w/o enough food: No - Nursing Vital Signs Nursing Vital Signs: Initial Vital Signs Temperature 97.2 F 12/25/24 10:21 Pulse Rate 80 12/25/24 10:21 Respiratory Rate 18 12/25/24 10:21 Blood Pressure 183/75 12/25/24 10:21 O2 Sat by Pulse Oximetry 98 12/25/24 10:21 Pain Scale Pain Intensity 3 - Physical Exam General Appearance: no apparent distress Eyes, Ears, Nose, Throat Exam: normal ENT inspection Neck Exam: normal inspection Cardiovascular/Respiratory Exam: chest non-tender Gastrointestinal/Abdominal Exam: non-tender Back Exam: normal inspection Hips Exam: bilateral: non-tender Legs Exam: bilateral leg: non-tender Knees Exam: bilateral knee: non-tender Ankle Exam: left ankle: no evidence of injury, pain, soft tissue tenderness Foot Exam: left foot: pain, soft tissue tenderness DTR - Lower Extremities Exam: knee (R): 2+, knee (L): 2+, ankle (R): 2+, ankle (L): 2+ Neuro/Tendon Exam: normal sensation, normal motor functions, normal tendon functions, responds to pain, no evidence tendon injury Mental Status Exam: alert, oriented x 3 Skin Exam: normal color SpO2 Interpretation: normal SpO2: 96 O2 Delivery: Room Air - Course Nursing assessment & vital signs reviewed: Yes - Radiology Exams Ankle X-ray Interpretation: Interpreted by me, Reviewed by me, Negative, No Fracture Foot X-ray Interpretation: Interpreted by me, Reviewed by me, No Fracture Ordered Tests: Active Orders 24 hr Category Date Time Status ANKLE (3 VIEWS) Stat Exams 12/25/24 10:41 Taken FOOT (MINIMUM 3 VIEWS) Stat Exams 12/25/24 10:41 Taken - Progress Progress: unchanged, pain not gone completely Counseled pt/family regarding: diagnosis, need for follow-up, rad results Medical Desision Making - Diagnostic Testing Diagnostic test were ordered, analyzed, and reviewed by me: Yes Radiological Interpretation: Interpreted by me, Reviewed by me - Risk of complications Minimal Risk: Minimal risk of morbidity - Departure Departure Disposition: Home Clinical Impression: Pain, foot, left, chronic, Pain in left ankle and joints of left foot Condition: Stable Critical Care Time: No Referrals: LAURA MOONEY NP [Primary Care Provider] - Follow up/PCP as directed (follow up with Dr Helton) Instructions: Metatarsalgia (DC), Ankle Impingement Additional Instructions: Discharge/Care Plan CAROLINALAUREN FLORENTINO was seen on 12/25/24 in the Emergency Room. The patient was counseled regarding Diagnosis,Lab results, Imaging studies, need for follow up and when to return to the Emergency Room. Prescriptions given: Discharge Note I have spoken with the patient and/or caregivers. I have explained the patient's condition, diagnosis and treatment plan based on the information available to me at this time. I have answered the patient's and/or caregiver's questions and addressed any concerns. The patient and/or caregivers have as good understanding of the patient's diagnosis, condition and treatment plan as can be expected at this point. The vital signs have been stable. The patient's condition is stable and appropriate for discharge from the emergency department. The patient will pursue further outpatient evaluation with the primary care physician or other designated or consulting physician as outlined in the discharge instructions. The patient and/or caregivers are agreeable to this plan of care and follow-up instructions have been explained in detail. The patient and/or caregivers have received these instruction. The patient/and or caregivers are aware that any significant change in condition or worsening of symptoms should prompt an immediate return to this or the closest emergency department or call 911. LAUREN FIGUEROA was seen on 12/25/24 n the Emergency Room. At that time you were treated for an emergent condition, during your visit Laboratory, Radiology and/or other procedures may have been ordered. It is very important that you follow-up with your Primary Care Physician LAURA MOONEY within the next 24-48 hours to review your Emergency Room visit and the final results of testing that was ordered. Some test results such as Urine Cultures, Blood Cultures, and other cultures if ordered will not be finalized for 24-48 hours. If you do not have a Primary Care Provider please call the medical records department at [phone] to obtain a copy of your results or you may sign into our patient portal to obtain these results by visiting us @ [email or web address] and completing the following steps: 1. Click on the Patient Portal link 2. Click the Patient Self Enrollment Link to complete the enrollment form and entering your 3. Once the enrollment form is completed you will receive an email with a temporary ID and password at the email address you provided. 4. Next choose a user name and password. Your user name must be at least 4 characters long and your password must be at least 4 characters long. 5. Choose a security question from the list and provide your answer to the question. If you already have signed into the Health Portal you may access your Health Care Information 04/05 by the following steps: 1. Login to our website @ [email or web address] 2. Enter your original user name and password. FAQS The [facility] Health Portal is an online tool that contains your Lab Results, Radiology Reports, Visit History, Discharge Instructions and Health Summary Lab and Radiology Results will not be available for 72 hours on the portal. The Portal is a secure site, passwords are encryted and URLs are re-written so they cannot be copied and pasted. You and authorized family members are the only ones who can access your Portal. Also there is a timeout feature that protects your information if you leave the Portal page open. If you have technical difficulty please use the Contact Us link on the page this will allow you to submit any questions you have regarding the Portal or you may contact the Medical Record Department at [phone] ext [phone].
--- NOTE | 2024-12-25 19:39 | XRAY ---
Indication: Pain and swelling. No known injury. Comparison: None 3 view left ankle demonstrates osteopenia, small distal tibia enchondroma, subtalar orthopedic screw, small heel spurs, mild scattered vascular calcifications, and chunky heterotopic ossifications posterior to distal tibia. No acute bony, articular, or soft tissue abnormalities.
--- NOTE | 2024-12-25 19:41 | XRAY ---
Indication: Pain and swelling. No known injury. Comparison: None 3 nonweightbearing views left foot demonstrates osteopenia, subtalar orthopedic screw, small heel spurs, distal 1st metatarsal bunionectomy with intact screw, pes planus, mild scattered vascular calcifications, and chunky heterotopic ossifications posterior to distal tibia. No acute bony, articular, or soft tissue abnormalities.
== END 2024-12-25 11:10 | disposition home or self-care (01) ==
LOC: ED 10:06
DX: G89.29 Other chronic pain (principal); M79.672 Pain in left foot; M25.572 Pain in left ankle and joints of left foot; I10 Essential (primary) hypertension; Z79.899 Other long term (current) drug therapy
CPT/HCPCS: 73610; 73630; 99283